=== PATIENT | male | born 1945 | race Caucasian/White ===

== ENCOUNTER → 2017-02-16 | Outpatient (CLI) | payer BC ==
[~2017-02-16] MED LIST: AC500T PO; ASPI-624 PO; ATOR20TA49 PO; BISO1TAB41 PO; GLYB1.253 PO; GLYB5TAB6 PO; HYDR-3812 PO; HYDR-623 PO; LISI10TA2 PO; LISI20TA PO; LOSA1TAB69 PO; METO25TA PO; ONDN4T PO; PANT40TA2 PO; ROSU10TA12 PO; SITA1TAB2 PO; SITA1TBM7 PO; SITA50TA PO; TRAM50TA2 PO; [UNRECOGNIZED DRUG - CODE] MC
[2017-02-16 08:07] LABS: BILIRUBIN,TOTAL 0.5 MG/DL (0.1-1.0); CALCIUM 9.4 MG/DL (8.5-10.1); CREATININE SERUM 1.69 MG/DL (0.60-1.30); POTASSIUM 3.9 MMOL/L (3.6-5.0); TOTAL PROTEIN 7.3 G/DL (6.4-8.2)
== END ==
LOC: LAB 07:30
PROVIDERS: ATTEND Family Medicine
DX: E11.9 Type 2 diabetes mellitus without complications (principal); Z79.4 Long term (current) use of insulin
CPT/HCPCS: 36415; 80053; 83036

== ENCOUNTER → 2017-10-24 | Outpatient (CLI) | payer BC, MEDICARE ==
[~2017-10-24] MED LIST changes: +ACHD5005 PO; -HYDR-3812 PO; +LOSA1TAB20 PO; -LOSA1TAB69 PO
== END ==
LOC: CARD 12:56
PROVIDERS: ATTEND Internal Medicine Cardiovascular Disease
DX: I25.10 Atherosclerotic heart disease of native coronary artery without angina pectoris (principal); R07.9 Chest pain, unspecified; I10 Essential (primary) hypertension; E78.2 Mixed hyperlipidemia
CPT/HCPCS: 93306

== ENCOUNTER → 2017-10-25 | Outpatient (CLI) | payer BC, MEDICARE ==
[~2017-10-25] MED LIST changes: +CATHETER FLUSH 10 ML SYR IV PRN
--- NOTE | 2017-10-25 17:45 | STRESS TEST ---
DATE OF SERVICE: 10/25/2017 EXERCISE MYOVIEW STRESS TEST REPORT: REFERRING PHYSICIAN: Dr. Sue. Baseline heart rate is 76. Baseline blood pressure 186/88. Baseline EKG sinus rhythm with right bundle branch block. In summary, the patient was injected with 10.72 mCi of technetium-99 Myoview and the resting images were obtained. Then, the patient started exercising with the baseline heart rate, blood pressure and EKG mentioned above. The patient was able to exercise for a total of 3 minutes 30 seconds on standard Arsh protocol. With peak exercise level, EKG was showing minimal nondiagnostic changes. Blood pressure was 250/90. During recovery, heart rate and blood pressure returned to baseline. EKG returned to baseline. The resting and stress images were reviewed and compared in the short axis, horizontal long axis, and vertical long axis views. Review of the images showed diaphragmatic attenuation with typical male pattern. There is no significant ischemia or infarction was noted. SSS is 4, SDS 4, TID value 1.09. On the gated images, the left ventricle appeared to be normal size with normal contractility. Calculated ejection fraction 57%. CONCLUSION: 1. Fair exercise tolerance, a total of 3 minutes 30 seconds on standard Arsh protocol, total of 5.2 METS achieving 91% of maximum expected heart rate. 2. Baseline right bundle branch block with nondiagnostic EKG changes with exercise, returned to baseline during recovery. 3. Baseline hypertension with severe hypertensive response to exercise, returned to baseline during recovery. 4. Diaphragmatic attenuation with typical male pattern, mild decreased uptake at the mid to apical inferior wall with subtle reversibility, no significant ischemia or infarction was seen. 5. Normal left ventricular size with normal contractility. Calculated ejection fraction 57%. Job ID: [id number] DocumentID: [id number] Dictated Date: 10/25/2017 14:29:38 Bacon Slicer Date: 10/25/2017 17:44:50 Dictated By: DARRELL MCCORMICK MD
== END ==
LOC: CARD 07:03
PROVIDERS: ATTEND Internal Medicine Cardiovascular Disease
DX: I25.10 Atherosclerotic heart disease of native coronary artery without angina pectoris (principal); I10 Essential (primary) hypertension; E78.2 Mixed hyperlipidemia; R07.9 Chest pain, unspecified
CPT/HCPCS: 78452; 93017

== ENCOUNTER → 2019-06-03 | Outpatient (CLI) | payer BC, MEDICARE ==
[~2019-06-03] MED LIST changes: -CATHETER FLUSH 10 ML SYR IV PRN
--- NOTE | 2019-06-03 11:11 | Diagnostic Imaging Report ---
US RENAL ART DOPPLER FELICITY COMP TECHNIQUE: Multi-projectional grayscale, color Doppler and spectral duplex imaging of the bilateral kidneys and renal vasculature was performed. INDICATION: Hypertension. COMPARISON: None available. FINDINGS: Right side: Right kidney is normal in size measuring 11 cm. There is no hydronephrosis or suspicious mass lesion. The following measurements were made for the right renal vasculature and/or as follows: Main renal artery: Color Doppler imaging shows patency of the main renal artery and there are normal low resistant waveforms present. No elevated peak systolic velocity to indicate hemodynamically significant stenosis. Maximal peak systolic velocity is 77 cm/s in the proximal renal artery. Interlobular/arcuate arteries: Patent without parvus tardus anomaly. PSV:Aorta : 1.0 Left side: Left kidney is normal in size measuring 11 cm. There is no hydronephrosis or suspicious mass lesion. The following measurements were made for the left renal vasculature and/or as follows: Main renal artery: Color Doppler images patency of the left main renal artery with normal low resistant arterial waveforms. No elevated peak systolic velocities to indicate hemodynamically significant stenosis. Maximal peak systolic velocity is 61 cm/s within the proximal aspect. Interlobular/arcuate arteries: Patent without features of parvus tardus anomaly. PSV:Aorta : 0.8 Urinary bladder is normally filled without wall thickening. IMPRESSION: 1. No features of hemodynamically significant renal artery stenosis. Abnormal Parameters: PSV > 200 cm/s PSV:Aorta > 3.5 Acceleration Index < 300 cm/sec2 Acceleration time > 70 msec Dictated by: Dictated on workstation # [id number]
== END ==
LOC: RAD 08:27
PROVIDERS: ATTEND Internal Medicine Cardiovascular Disease
DX: I25.10 Atherosclerotic heart disease of native coronary artery without angina pectoris (principal); I10 Essential (primary) hypertension; E11.9 Type 2 diabetes mellitus without complications; E78.5 Hyperlipidemia, unspecified
CPT/HCPCS: 76770; 93975

== ENCOUNTER → 2019-11-21 | Outpatient (CLI) | payer BC, MEDICARE | LOC: CARD 13:55 | PROVIDERS: ATTEND Physician Assistant | DX: I35.8 Other nonrheumatic aortic valve disorders (principal); I11.9 Hypertensive heart disease without heart failure; I25.10 Atherosclerotic heart disease of native coronary artery without angina pectoris; I65.23 Occlusion and stenosis of bilateral carotid arteries; E78.5 Hyperlipidemia, unspecified | CPT/HCPCS: 93306 ==

== ENCOUNTER → 2019-11-25 | Outpatient (CLI) | payer BC, MEDICARE ==
[~2019-11-25] VITALS: Ht 175 cm; Wt 109.0 kg
[~2019-11-25] MED LIST changes: +REGADENOSON 0.4 MG/5 ML SYR (LEXISCAN) IV ONE
[2019-11-25] MEDS: CATHETER FLUSH 10 ML SYR IV PRN ×2 (07:53→08:59)
[2019-11-25 08:58] VITALS: BP 181/74
--- NOTE | 2019-11-25 14:30 | STRESS TEST ---
DATE OF SERVICE: 11/25/2019 LEXISCAN MYOVIEW STRESS TEST REPORT REFERRING PHYSICIAN: Marty Chaudhry DO. Baseline heart rate is 63. Baseline blood pressure is 161/70. Baseline EKG is sinus rhythm with no ischemic changes. In summary, the patient was injected with 10.34 mCi of technetium-99 Myoview and the resting images were obtained. Then, the patient received 0.4 mg of Lexiscan followed by 32.4 mCi of technetium-99 Myoview. Throughout the test, there were no EKG changes. The resting and stress images were reviewed and compared in the short axis, horizontal long axis, and vertical long axis views. Review of the images showed diaphragmatic attenuation with mild decreased uptake at the inferior wall with no significant reversibility. SSS is 4, SDS 1 and TID value 1.02. On the gated images, the left ventricle appeared to be normal size with normal contractility. Calculated ejection fraction is 54%. CONCLUSION: 1. The patient tolerated the Lexiscan well. 2. Diaphragmatic attenuation with typical male pattern with no significant ischemia or infarction. 3. Normal left ventricular size with normal contractility. Calculated ejection fraction is 54%. Job ID: [id number] DocumentID: [id number] Dictated Date: 11/25/2019 11:48:48 Hospice Chaplain Date: 11/25/2019 14:29:32 Dictated By: DARRELL MCCORMICK MD
== END ==
LOC: CARD 07:39
PROVIDERS: ATTEND Physician Assistant
DX: I25.10 Atherosclerotic heart disease of native coronary artery without angina pectoris (principal); I65.29 Occlusion and stenosis of unspecified carotid artery; I10 Essential (primary) hypertension; E78.5 Hyperlipidemia, unspecified
CPT/HCPCS: 78452; 93017

== ENCOUNTER → 2021-06-01 | Outpatient (CLI) | payer BC, MEDICARE ==
[~2021-06-01] MED LIST changes: +ACET-2267 PO; +AMLO-251 PO; +ASPI-1238 PO; +ATOR40TA70 PO; +CARB15DR OU; +CLOP75TA28 PO; +DONE5TAB30 PO; +GLBR5T PO; -GLYB5TAB6 PO; +HYDR25TA4 PO; +INSU100I32 SQ; -LISI10TA2 PO; +LISI10TA25 PO; +LOSA50TA63 PO; +METO50TA7 PO; -REGADENOSON 0.4 MG/5 ML SYR (LEXISCAN) IV ONE
--- NOTE | 2021-06-01 11:33 | Diagnostic Imaging Report ---
INDICATION: Hypertension, renal artery stent. TECHNIQUE: Multiple real-time grayscale sonographic images, color and duplex Doppler images were obtained of the urinary system. Correlation: 06/03/2019 FINDINGS: Aortic velocity: 88 cm/sec. RIGHT kidney: Size: 12.2 x 5.0 x 6.4 cm The right renal parenchyma and collecting system appear unremarkable. The right renal artery is visualized in its proximal, mid and distal aspect. Maximum renal artery velocity: 131cm/sec Maximum renal artery/aortic ratio: 1.5 LEFT kidney: Size: 10.4 x 4.4 x 5.8 cm The left renal parenchyma and collecting system appear unremarkable. The left renal artery is visualized in its proximal, mid and distal aspect. Maximum renal artery velocity: 421cm/sec Maximum renal artery/aortic ratio: 4.8 Bladder: Unremarkable and demonstrates visualization of bilateral ureteral jets. This was a reportedly technically difficult examination to perform. IMPRESSION: 1. Abnormally elevated left renal artery velocity. Given this finding, does raise concern for potential renal artery stenosis. Alternative means of imaging such as CTA would be recommended for further assessment. (RA/AO ratios > 3.0 may suggest potential hemodynamically significant stenosis.) Dictated by: Dictated on workstation # [id number]
== END ==
LOC: RAD 08:30
PROVIDERS: ATTEND Physician Assistant
DX: I10 Essential (primary) hypertension (principal); Z95.828 Presence of other vascular implants and grafts
CPT/HCPCS: 76770; 93975

== ENCOUNTER 2021-06-16 08:00 | Day surgery (SDC) | payer BC, MEDICARE ==
[2021-06-16] VITALS (11 sets, daily range): BP systolic 128–181; BP diastolic 66–86
[~2021-06-16] VITALS: Ht 172.7 cm; Wt 113.0 kg
[2021-06-16 07:18] LABS: BILIRUBIN,URINE NEGATIVE (NEGATIVE); CLARITY,URINE CLEAR; COLOR,URINE YELLOW; GLUCOSE, URINE (UA) 3+ (NEGATIVE); KETONES,URINE NEGATIVE (NEGATIVE); LEUKOCYTE ESTERASE ,URINE NEGATIVE (NEGATIVE); NITRITE,URINE NEGATIVE (NEGATIVE); PH,URINE 6.5 (5-9); PROTEIN,URINE NEGATIVE (NEGATIVE)
[2021-06-16 07:19] LABS: HEMATOCRIT 50 % (40-54); HEMOGLOBIN 16.3 g/dL (13.3-17.7); MEAN CORPUSCULAR HEMOGLOBIN 31 pg (25-34); MEAN CORPUSCULAR HGB CONC 33 g/dL (32-36); MEAN CORPUSCULAR VOLUME 93 fL (80-99); MEAN PLATELET VOLUME 9.6 fL (9.0-12.2); PLATELET COUNT 259 10^3/uL (130-400); WHITE BLOOD COUNT 8.2 10^3/uL (4.3-11.0)
[2021-06-16 07:32] LABS: INR 0.9 (0.8-1.4); PROTHROMBIN TIME PATIENT 12.9 SEC (12.2-14.7)
[2021-06-16 07:36] LABS: BACTERIA,URINE NEGATIVE /HPF
[2021-06-16 07:39] LABS: ALBUMIN 4.1 GM/DL (3.2-4.5); BILIRUBIN,TOTAL 0.4 MG/DL (0.1-1.0); CALCIUM 9.6 MG/DL (8.5-10.1); CREATININE SERUM 1.68 MG/DL (0.60-1.30); TOTAL PROTEIN 7.4 GM/DL (6.4-8.2)
[~2021-06-16 08:00] MED LIST changes: +HEParin (CATH LAB) 2,000 ML IV ONE; +LIDOCAINE 1% INJ 20 ML 20 ML VIAL ONE; +MIDAZOLAM 5 MG/5 ML (VERSED) VIAL ONE; +NS IV 1000 ML 1,000 ML IV SCH; +NS IV 1000 ML 1,000 ML ONE; +diphenhydrAMINE 50 MG/ML INJ (BENADRYL) ONE; +fentaNYL INJ 100 MCG/2 ML AMP ONE; +methylPREDNISolone 125 MG (Solu-MEDROL) VIAL IVP ONE; +methylPREDNISolone 125 MG (Solu-MEDROL) VIAL ONE
--- NOTE | 2021-06-16 08:10 | Diagnostic Imaging Report ---
INDICATION: Preoperative evaluation. EXAMINATION: Chest 06/16/2021. COMPARISON: 10/25/2011 and 12/17/2013. FINDINGS: The heart is unremarkable. Pulmonary vasculature normal. There is an oval density in the left perihilar region not appreciated previously, but possibly a vessel on end. Follow-up is recommended to assure stability versus CT to exclude a lung nodule. Remaining lungs clear. No infiltrates, effusions or pneumothorax. IMPRESSION: 1. Oval density in the left perihilar region nonspecific see above discussion. Otherwise negative chest. Dictated by: Dictated on workstation # [id number]
--- NOTE | 2021-06-16 09:36 | Conscious Sedation/ASA ---
Conscious Sedation Pre-Proced Time 09:36 ASA Score 3 For ASA 3 and 4: Consider anesthesia and medical clearance. Also, for patients with a history of failed moderate sedation consider anesthesia. Airway Lungs Heart ASA score ASA 1: a normal healthy patient ASA 2: a patient with a mild systemic disease (mid diabetes, controlled hypertension, obesity x ASA 3: a patient with a severe systemic disease that limits activity (angina, COPD, prior Myocardial infarction) ASA 4: a patient with an incapacitating disease that is a constant threat to life (CHF, renal failure) ASA 5: a moribund patient not expected to survive 24 hrs. (ruptured aneurysm) ASA 6: a declared brain- patient whose organs are being harvested. For emergent operations, add the letter E after the classification Mallampati Classification Grade 3 Sedation Plan Analgesia, Amnesia, Plan communicated to team members, Discussed options with patient/fam, Discussed risks with patient/fam The patient is an appropriate candidate to undergo the planned procedure, sedation, and anesthesia. The patient immediately re-assessed prior to indication. DARRELL MCCORMICK MD Jun 16, 2021 09:36
[2021-06-16] MEDS ORDERED: HEParin 1000 UNIT/ML (10ML VIAL) FOR BOLUS ONE (10:12)
--- NOTE | 2021-06-16 10:57 | Peripheral Report ---
Peripheral Report Physician (s)/Assistant Grocery Store Manager (s) Physician DARRELL MCCORMICK MD Pre-Procedure Diagnosis Pre-Procedure Diagnosis: Renal artery stenosis Post-Procedure Note Procedure Start Date: Jun 16, 2021 Name of Procedure: Bilateral renal artery angiogram First order Balloon angioplasty to the right renal artery Findings/Procedure Note PROCEDURE NOTE: 75-year-old gentleman with malignant hypertension, renal artery stenosis, history of angioplasty done in the past, had difficult with controlling his blood pressure, renal angiogram suggestive of renal artery stenosis. After explaining the procedure to the patient, all pros and cons were explained, all questions were answered. The patient signed the consent and then he was placed on the cardiac catheterization laboratory. The patient was placed on the cardiac catheterization laboratory. Groin was prepped SL fashion local anesthesia was used. Sheath placed in the right femoral artery, 6 Israeli sheath was placed in the artery then Yulia right diagnostic catheter advanced to the right and left renal artery selective engagement was do ne and angiogram was done then I exchanged the sheath using long 6 Israeli RDC sheath that went straight in the right renal artery, BMW wire was advanced and Towanda 5 x 20 balloon was inflated multiple times angiogram showed excellent results. Post the inflation I try to move the long sheath to a mid to the left renal artery without success subsequently I exchanged the sheath back and used short 6 Israeli sheath then the sheath was removed and closure device deployed FINDINGS: Left renal artery: Has moderate stenosis nonobstructive disease Right renal artery: Moderate to severe proximal stenosis, successful angioplasty using Towanda 5 x 20 balloon with multiple inflation with excellent results CONCLUSIONS: 1. Successful balloon angioplasty to the right renal artery using Towanda 5 x 20 balloon with excellent results 2. Moderate stenosis at the left renal artery DISCUSSION AND RECOMMENDATIONS: Continue to maximize medical therapy Anesthesia Type: Conscious Sedation Estimated blood loss (mL): 35 ml Contrast Amount: 33 ,l Total Radiation Dose: 534 mGy Post-Procedure Diagnosis Post-operative diagnosis: Malignant hypertension Renal artery stenosis Hypertension Hyperlipidemia DARRELL MCCORMICK MD Jun 16, 2021 10:57
[2021-06-16] MEDS ORDERED: CLOPIDOGREL 300 MG (PLAVIX) TABLET PO ONE (11:00)
[2021-06-16] MEDS ORDERED: NON-FORMULARY MEDICATION 1 EA EA (Carboxymethylcellulose Sodium (Refresh Tears) 1 DROP) OU PRN (11:00)
[2021-06-16] MEDS ORDERED: PATIENT MAY USE OWN MEDS, ALL PO SCH (11:00)
[2021-06-16] MEDS ORDERED: ASPIRIN E.C. 325 MG (ECOTRIN) TABLET PO ONE (11:00)
[2021-06-16] MEDS: NS IV 1000 ML 1,000 ML IV SCH ×2 (12:20→21:09)
[2021-06-16] MEDS ORDERED: diphenhydrAMINE 50 MG/ML INJ (BENADRYL) IVP PRN (13:00)
[2021-06-16] MEDS ORDERED: FLU QUAD HIGH DOSE 240 MCG/0.7 ML 2021-22 (FLUZONE) IM ONE (13:00)
[2021-06-16] MEDS ORDERED: diphenhydrAMINE 50 MG/ML INJ (BENADRYL) ONE (13:01)
[2021-06-16] MEDS ORDERED: predniSONE 20 MG TAB PO NR (14:00)
[2021-06-16] MEDS ORDERED: ARTIFICAL TEARS 0.4 ML UNIT DOSE (REFRESH PLUS) OU PRN (14:00)
--- NOTE | 2021-06-16 19:12 | Diagnostic Imaging Report ---
EXAMINATION: CT chest without contrast. TECHNIQUE: Multiple contiguous axial images were obtained through the chest without the use of intravenous contrast. All CT scans use one or more of the following dose optimizing techniques: automated exposure control, MA and/or KvP adjustment based on patient size and exam type or iterative reconstruction. HISTORY: Pulmonary nodule. COMPARISON: None available. FINDINGS: There is no edema or pneumonia. No pleural effusion. No pneumothorax. No suspicious nodules. There is a small calcified granuloma in the right lower lobe. There is no correlate for the radiographic abnormality. There is no axillary or supraclavicular lymphadenopathy. There is no mediastinal lymphadenopathy. Heart size is normal. There are severe coronary artery calcifications. No pericardial effusion. Aorta is normal in caliber. Limited views of the upper abdomen show stones in gallbladder. There is no suspicious osseus lesion. IMPRESSION: No correlate for the radiographic abnormality which is likely a vascular structure. Dictated by: Dictated on workstation # [id number]
[2021-06-17] VITALS: BP 118/55
[2021-06-17 04:00] VITALS: BP 122/62
--- NOTE | 2021-06-17 05:43 | Discharge Inst-Post CATH ---
Discharge Inst-CATH/EP Problems Reviewed?: Yes Post Cardiac Cath/EP D/C Inst Follow Up/Plan Appointment with Dr Mejia in 2-4 weeks <b>CARDIAC CATH/EP PROCEDURE DISCHARGE INSTRUCTIONS</b> ACTIVITY * Go Home directly and rest. * Limit activity of the leg (or wrist if it was used) for 7 days including aerobics, swimming, jogging, bicycling, etc. * Restrict stair-climbing for 7 days if possible, if not, climb up with your non-cath leg, then bring together on the same step. * Avoid lifting, pushing, pulling or excessive movement of the affected extremity for 7 days. * Customary sexual activity may be resumed after 2 days-use caution not to use a position that strains or causes pain to the affected extremity. * No driving for 24 hours. * NO SMOKING. * Avoid straining for bowel movements for 7 days. * Gentle walking on level ground is allowed. * Returning to work will depend on the type of procedure and the results. Your doctor will discuss this with you. CALL YOUR DOCTOR FOR ANY OF THE FOLLOWING: *If bleeding from the puncture site occurs- Apply gentle pressure to site with clean cloth and call your doctor or EMS. * If a knot or lump forms under the skin, increases in size, or causes pain. * If bruising appears to be worsening or moving further down your leg instead of disappearing. * Temperature above 101 F. CARE OF YOUR GROIN INCISION; * Bruising or purple discoloration of the skin near the puncture site is common. * You may shower only, no bathtub bathing for 5 days. Be careful to avoid slipping as your leg may feel stiff. * If a closure device was used on your femoral artery, please see the attached guide regarding care of the device and your leg. * Leave dressing on FOR 24 hours. CARE OF YOUR WRIST INCISION; * Bruising or purple discoloration of the skin near the puncture site is common. * You may shower. * DO NOT submerge wrist. * Leave dressing on FOR 24 hours. DARRELL MEJIA MD Jun 17, 2021 05:43
[2021-06-17] MEDS: NS IV 1000 ML 1,000 ML IV SCH (05:55)
[2021-06-17 08:00] VITALS: BP 137/68
--- NOTE | 2021-06-17 08:31 | Cardiology Progress Note ---
Subjective Date Seen by Provider: Jun 17, 2021 Time Seen by Provider: 08:30 Subjective/Events-last exam Patient is laying down in bed, feeling better. No new complaint, blood pressure is better Review of Systems General: No Chills, No Night Sweats, No Fatigue, No Malaise, No Appetite, No Other HEENT: No Head Aches, No Visual Changes, No Eye Pain, No Ear Pain, No Dysphasia, No Sinus Congestion, No Post Nasal Drip, No Sore Throat, No Other Pulmonary: No Dyspnea, No Cough, No Pleuritic Chest Pain, No Other Cardiovascular: No: Chest Pain, Palpitations, Orthopnea, Paroxysmal Noc. Dyspnea, Edema, Lt Headedness, Other Objective-Cardiology Exam Last Set of Vital Signs Vital Signs 06/17/21 08:00 Temp 36.7 Pulse 69 Resp 14 B/P (MAP) 137/68 (91) Pulse Ox 96 O2 Delivery Room Air I&O Intake and Output 06/17/21 00:00 Intake Total 1970 ml Balance 1970 ml Intake Oral 970 ml IV Total 1000 ml # Voids 5 Daily Weight Change No General: Alert, Oriented X3, Cooperative HEENT: Atraumatic, PERRLA Neck: Supple, No JVD, No Thyromegaly Lungs: Clear to Auscultation, Normal Air Movement Heart: Regular Rate, Normal S1, Normal S2, No Murmurs Abdomen: Normal Bowel Sounds, Soft, No Tenderness, No Hepatosplenomegaly, No Masses Extremities: No Clubbing, No Cyanosis, No Edema, Normal Pulses, No Tenderness/Swelling Skin: No Rashes, No Breakdown, No Significant Lesion Neuro: Normal Gait, Normal Speech, Strength at 5/5 X4 Ext, Normal Tone, Sensation Intact Psych/Mental Status: Mental Status NL, Mood NL Results Lab Laboratory Tests Test 06/16/21 10:48 Range/Units Activated Partial Thromboplast Time > 200 *H 24-35 SEC A/P-Cardiology Admission Diagnosis Malignant hypertension Renal artery stenosis Hyperlipidemia Assessment/Plan Malignant hypertension, blood pressure is better today. Status post renal artery angioplasty on the right renal artery with good results. Renal artery stenosis status post balloon angioplasty with excellent results Coronary artery disease, clinically stable Hyperlipidemia Pulmonary nodule noted on chest x-ray, CT scan was done yesterday and showed no significant abnormality. DARRELL MCCORMICK MD Jun 17, 2021 08:31
[2021-06-17] MEDS ORDERED: ASPIRIN E.C. 81 MG (ECOTRIN) TAB PO SCH (09:00)
[2021-06-17] MEDS ORDERED: amLODIPine 10 MG (NORVASC) TAB PO SCH (09:00)
[2021-06-17] MEDS ORDERED: CLOPIDOGREL 75 MG (PLAVIX) TABLET PO SCH (09:00)
[2021-06-17] MEDS ORDERED: DONEPEZIL 5 MG (ARICEPT) TAB PO SCH (09:00)
[2021-06-17] MEDS ORDERED: meTOproloL SUCCINATE 50 MG (TOPROL XL) TAB PO SCH (09:00)
[2021-06-17] MEDS ORDERED: ACETAMINOPHEN 500 MG TAB (TYLENOL) PO SCH (09:00)
[2021-06-17] MEDS ORDERED: INSULIN DEGLUDEC 70 UNIT SQ SCH (09:00)
[2021-06-17] MEDS ORDERED: LOSARTAN 50 MG (COZAAR) TAB PO SCH (09:00)
[2021-06-17 10:27] VITALS: BP 137/68
== END 2021-06-17 09:57 | disposition home or self-care (01) ==
LOC: CSD 11:00 → CATH 06-17 09:57
PROVIDERS: ATTEND Internal Medicine Cardiovascular Disease
DX: I70.1 Atherosclerosis of renal artery (principal); I25.10 Atherosclerotic heart disease of native coronary artery without angina pectoris; I65.23 Occlusion and stenosis of bilateral carotid arteries; I12.9 Hypertensive chronic kidney disease with stage 1 through stage 4 chronic kidney disease, or unspecified chronic kidney disease; E78.5 Hyperlipidemia, unspecified; E11.22 Type 2 diabetes mellitus with diabetic chronic kidney disease; N18.9 Chronic kidney disease, unspecified; Z79.82 Long term (current) use of aspirin; Z79.02 Long term (current) use of antithrombotics/antiplatelets; Z86.73 Personal history of transient ischemic attack (TIA), and cerebral infarction without residual deficits; Z79.899 Other long term (current) drug therapy; Z83.3 Family history of diabetes mellitus
CPT/HCPCS: 37246; 71045; 71250; 80053; 80061; 81000; 85027; 85610; 85730; 87081; 93005; C1725; C1760; C1769; C1887; C1894; 36415

== ENCOUNTER → 2022-01-10 | Outpatient (CLI) | payer BC, MEDICARE ==
[~2022-01-10] MED LIST changes: -HEParin (CATH LAB) 2,000 ML IV ONE; -LIDOCAINE 1% INJ 20 ML 20 ML VIAL ONE; -MIDAZOLAM 5 MG/5 ML (VERSED) VIAL ONE; -NS IV 1000 ML 1,000 ML IV SCH; -NS IV 1000 ML 1,000 ML ONE; -diphenhydrAMINE 50 MG/ML INJ (BENADRYL) ONE; -fentaNYL INJ 100 MCG/2 ML AMP ONE; -methylPREDNISolone 125 MG (Solu-MEDROL) VIAL IVP ONE; -methylPREDNISolone 125 MG (Solu-MEDROL) VIAL ONE
--- NOTE | 2022-01-10 17:33 | Diagnostic Imaging Report ---
PROCEDURE: US Renal Bilateral. TECHNIQUE: Multiple real-time grayscale images were obtained over the kidneys in various projections bilaterally. INDICATION: Chronic kidney disease. COMPARISON: 06/01/2021. FINDINGS: The right kidney measures 11.9 cm in length. There is no hydronephrosis. No masses or calculi are seen. The left kidney measures 9.5 cm in length. There is no hydronephrosis, mass or shadowing calculus. No free fluid is seen. The prevoid bladder volume is 200 mL. No filling defects or debris are seen in the bladder. The ureteral jets are not seen. Postvoid volume is 0. IMPRESSION: 1. Normal renal ultrasound. Dictated by: Dictated on workstation # [id number]
== END ==
LOC: RAD 14:07
PROVIDERS: ATTEND Internal Medicine Nephrology
DX: I12.9 Hypertensive chronic kidney disease with stage 1 through stage 4 chronic kidney disease, or unspecified chronic kidney disease (principal); N18.32 Chronic kidney disease, stage 3b
CPT/HCPCS: 76770

== ENCOUNTER → 2023-02-10 | Outpatient (CLI) | payer BC, MEDICARE | LOC: CARD 11:27 | PROVIDERS: ATTEND Physician Assistant | DX: I35.8 Other nonrheumatic aortic valve disorders (principal); I11.9 Hypertensive heart disease without heart failure | CPT/HCPCS: 93306 ==

== ENCOUNTER → 2023-04-10 | Outpatient (CLI) | payer BC, MEDICARE ==
[~2023-04-10] MED LIST changes: +REGADENOSON 0.4 MG/5 ML SYR (LEXISCAN) IV ONE
[2023-04-10] MEDS: CATHETER FLUSH 10 ML SYR IVP PRN ×2 (07:37→09:15)
[2023-04-10 09:14] VITALS: BP 146/71
--- NOTE | 2023-04-10 11:28 | Cardiology Stress Test Report ---
Stress Test Report Date of Procedure/Referring: Date of Procedure: Apr 10, 2023 PCP Clarence Thompson MD Admitting Physician Admitting Physician: Attending Physician: Melissa Swanson Indications: HTN Baseline Heart Rate: 61 Baseline Blood Pressure: Blood Pressure Systolic: 146 Blood Pressure Diastolic: 71 Baseline Vitals Vital Signs Date Time Temp Pulse Resp B/P (MAP) Pulse Ox O2 Delivery O2 Flow Rate FiO2 04/10/23 09:14 77 16 146/71 (96) 97 Room Air Baseline EKG: Baseline EKG: RBBB Summary After explaining the procedure to the patient, he signed a consent and then brought to the stress nuclear laboratory. Patient received 0.4 mg Lexiscan for stress test, ECG, heart rate and blood pressure were monitored continuously. Resting and stress dose of radio tracer were injected, imaging was acquired and reviewed in short axis, horizontal long axis and vertical long axis views. TID: 1.07 SSS: 2 SDS: 0 EF: 53 Patient tolerated Lexiscan well Baseline right bundle branch block persisted during test No significant ischemia or infarction noted on SPECT images Normal left ventricular size, ejection fraction 53% Copy Copies To 1: CLARENCE THOMPSON MD, BASHAR J MD Apr 10, 2023 11:28
== END ==
LOC: CARD 07:17
PROVIDERS: ATTEND Physician Assistant
DX: I10 Essential (primary) hypertension (principal)
CPT/HCPCS: 78452; 93017; A9502